=== PATIENT | male | born 1935 | race Caucasian/White ===

== ENCOUNTER 2017-10-17 11:00 | Outpatient (RCR) | payer MEDICARE ==
[~2017-10-17 11:00] MED LIST: ALBU8.5H IH; AMLO-96 PO; ATOR20TA22 PO; ATOR20TA65 PO; ATOR40TA69 PO; AZIT-1 PO; BACDS PO; BECL7.3A7 IH; BECL8.7A2 IH; BECL8.7A6 IH; CALC500T6 PO; CEP500 PO; CHOL100059 PO; CYAN1TAB68 PO; DIPH0.5D12 IM; FLUINH INH; FLUT1DIS28 IH; HYDR12.558 PO; LEV500 PO; LISI-351 PO; LISI-353 PO; LISI-362 PO; LISI20TA29 PO; LOR5 PO; METO25TA23 PO; METO50TA19 PO; MONT10TA PO; OND4 PO; OXYGENHOME INH; PEG4000S14 PO; PNEU0.5D3 IM; SPIR25TA78 PO; VITA-195 PO
[2017-10-17 11:18] VITALS: BP 148/70
== END 2017-11-11 13:41 | disposition home or self-care (01) ==
LOC: SPU 11:00
PROVIDERS: ATTEND Radiology Radiation Oncology
DX: C61 Malignant neoplasm of prostate (principal)
CPT/HCPCS: 36415; 84153

== ENCOUNTER 2017-12-30 13:12 | Outpatient (RCR) | payer MEDICARE ==
[2017-11-17 11:23] VITALS: BP 141/72
[2017-12-19 11:36] VITALS: BP 141/72
[2018-01-05] MEDS ORDERED: LISI-353 PO (12:32)
== END 2018-01-14 15:50 | disposition home or self-care (01) ==
LOC: RAON 13:12
PROVIDERS: ATTEND Radiology Radiation Oncology
DX: C61 Malignant neoplasm of prostate (principal)
CPT/HCPCS: 36415; 84153; G0463; 99212

== ENCOUNTER 2018-02-18 11:00 | Outpatient (RCR) | payer MEDICARE ==
[2017-12-19 11:36] VITALS: BP 141/72
== END 2018-03-09 13:48 | disposition home or self-care (01) ==
LOC: SPU 11:00
PROVIDERS: ATTEND Radiology Radiation Oncology
DX: C61 Malignant neoplasm of prostate (principal)
CPT/HCPCS: 36415; 84153

== ENCOUNTER → 2018-03-23 | Outpatient (CLI) | payer MEDICARE ==
[2018-03-23 14:42] LABS: LDL CHOLESTEROL 69 mg/dl
== END ==
LOC: LAB 14:18
PROVIDERS: ATTEND Internal Medicine
DX: E78.00 Pure hypercholesterolemia, unspecified (principal)
CPT/HCPCS: 36415; 82040; 82247; 82310; 82374; 82435; 82465; 82565; 82947; 83718; 84075; 84132; 84155; 84295; 84450; 84460; 84478; 84520

== ENCOUNTER 2018-03-25 00:40 | Day surgery (SDC) | payer MEDICARE ==
[~2018-03-25] VITALS: Ht 167.6 cm; Wt 67.1 kg
[2018-03-25] MEDS ORDERED: PROPOFOL EMUL(*) 10MG/ML 20 ML 40 ML ONE (07:10)
[2018-03-25] MEDS ORDERED: LIDOCAINE MPF 1% 5 ML VIAL ONE (07:10)
[2018-03-25 09:00] VITALS: BP 172/78
[2018-03-25] MEDS ORDERED: NORMOSOL R SOLN(*) 1000 ML BAG 1,000 ML IV PRN (09:35)
[2018-03-25] MEDS ORDERED: LIDOCAINE/SOD BICARB 8.4% SYR ID ONE (09:35)
[2018-03-25] MEDS ORDERED: ePHEDrine 25 MG/5 ML DISP.SYR IVP ONE (09:53)
[2018-03-25 10:12] VITALS: BP 102/58
[2018-03-25 10:15] VITALS: BP 102/59
--- NOTE | 2018-03-25 10:21 | Short(Outpt) Discharge Summary ---
Discharge Summary Reason for Hosp/Final Diag: (1) Hx of colonic polyp Status: Chronic Hospital Course & Plan: Colonoscopy with polypectomy x3 completed without problems. Departure Discharge to: Home, Self Care Discharge Instructions Home Meds Active Scripts Oxygen (OXYGEN) Inha, 2 L INH QHS, #2 L use oxygen at night Prov:JOAQUIN STUART MD 11/02/15 Cyanocobalamin/Folic Acid (VITAMIN W36-XTNAS ACID TABLET) 1 Each Tablet, 1 EACH PO DAILY, #120 TAB Prov:MARYANA WHITTEN MD 09/01/14 Reported Medications Lisinopril/Hydrochlorothiazide (LISINOPRIL-HCTZ 20-12.5 MG TAB) 1 Each Tablet, 1 EACH PO DAILY 01/05/18 Atorvastatin Calcium (ATORVASTATIN CALCIUM) 40 Mg Tablet, 4 TAB PO QWEEK, TAB 09/05/17 Cholecalciferol (Vitamin D3) (VITAMIN D3) 1,000 Unit Capsule, 2000 UNIT PO QDAY , CAPSULE 08/26/14 Diet: Regular Activity: As Tolerated Special Instructions: Your colonoscopy was completed without any problems and your prep was excellent (Good Job!!). I removed 3 polyps from your colon and they were sent to pathology. My office will call you in the next week to let you know what the polyps are but, if desired, you could have another colonoscopy in 5 years (dependent on your health at that time) since we keep removing polyps or you could decide that this was your last colonoscopy as national screening guidelines suggest that you don't need to keep having colonoscopies after 75-80 years old. VERONICA NEIL MD Mar 25, 2018 10:21
[2018-03-25 10:30] VITALS: BP 127/62
[2018-03-25 10:35] VITALS: BP 124/74
== END 2018-03-25 10:50 | disposition home or self-care (01) ==
LOC: OR 00:40
PROVIDERS: ATTEND Surgery
DX: Z12.11 Encounter for screening for malignant neoplasm of colon (principal); D12.3 Benign neoplasm of transverse colon; D12.4 Benign neoplasm of descending colon; Z86.010 Personal history of colon polyps
CPT/HCPCS: 00811; 45385; 88305; J2001; J2704

== ENCOUNTER → 2018-03-30 | Outpatient (CLI) | payer MEDICARE | LOC: US 00:42 | PROVIDERS: ATTEND Internal Medicine | DX: I51.7 Cardiomegaly (principal); I34.0 Nonrheumatic mitral (valve) insufficiency; I07.1 Rheumatic tricuspid insufficiency; I25.10 Atherosclerotic heart disease of native coronary artery without angina pectoris; I35.1 Nonrheumatic aortic (valve) insufficiency | CPT/HCPCS: 93306 ==

== ENCOUNTER 2018-06-19 11:11 | Outpatient (RCR) | payer MEDICARE ==
[2018-03-27 11:20] VITALS: BP 157/88
[2018-04-17 14:19] VITALS: BP 170/77
[2018-05-15 11:22] VITALS: BP 145/71
[~2018-06-19 11:11] MED LIST changes: -SPIR25TA78 PO; +SPIR25TA80 PO
[2018-06-19 11:34] VITALS: BP 153/71
== END 2018-06-22 ==
LOC: SPU 11:11
PROVIDERS: ATTEND Radiology Radiation Oncology
DX: C61 Malignant neoplasm of prostate (principal)
CPT/HCPCS: 36415; 84153

== ENCOUNTER → 2018-09-07 | Outpatient (CLI) | payer MEDICARE ==
[~2018-09-07] MED LIST changes: +AMLO-111 PO; -AMLO-96 PO; +FLUT1AER INH
--- NOTE | 2018-09-07 15:30 | RADIOLOGY IMAGING REPORT ---
FACILITY: [facility] PATIENT NAME: Gianfranco Chacko : 1935 MR: [id number] V: [id number] EXAM DATE: ORDERING PHYSICIAN: JOAQUIN STUART TECHNOLOGIST: Location: [facility] Patient: Gianfranco Chacko : 1935 Visit/Account:[id number] Date of Sevice: 09/07/2018 AORTA HISTORY: History of aneurysm COMPARISON: 12/26/2016 FINDINGS: Infrarenal abdominal aorta: 2.6 x 3.8 cm greatest AP and transverse dimensions. Aorta wall/mural thrombus: Unremarkable. Proximal common iliac artery diameters: Left 20 mm; Right 24 mm. Aorta and proximal common iliac arteries are patent by duplex Doppler ultrasound. 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
== END ==
LOC: US 02:20
PROVIDERS: ATTEND Internal Medicine
DX: I71.4 Abdominal aortic aneurysm, without rupture (principal)
CPT/HCPCS: 93979

== ENCOUNTER 2018-09-18 11:15 | Outpatient (RCR) | payer MEDICARE ==
--- NOTE | 2018-07-02 14:43 | ONCOLOGY FOLLOW UP NOTE ---
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 HISTORY OF PRESENT ILLNESS The patient is an 82-year-old gentleman who was noted to have an elevated PSA in 2013. The patient underwent a prostate biopsy in October 2014 that showed a Dee 3 + 3 adenocarcinoma involving one of 12 cores. Patient's PSA at that time was 12. He has been on active surveillance since. Repeat biopsy of the prostate in October 2015 showed a 79 cc prostate with a total of two cores positive for disease, Dee power of 3 + 3. The patient's most recent PSA has remained stable at 10.5. The patient's urinary symptoms are stable. His AUA score today is 6. He has nocturia one to two times per night. He denies a sensation of incomplete emptying. PAST MEDICAL HISTORY 1. Prostate cancer, see above. 2. BPH. 3. Abdominal aortic aneurysm. 4. Asthma. 5. Cancer. 6. Cataracts. 7. Heart murmur. 8. Hyperlipidemia. 9. Hypertension. 10. Osteoarthritis. 11. Retinal detachment. 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 SURGICAL HISTORY Cataracts and retinal repair in 2006. ALLERGIES PENICILLINS. MEDICATIONS 1. Supplemental oxygen 2L at bed. 2. B12. 3. Folic acid. 4. Lisinopril. 5. Hydrochlorothiazide. 6. Atorvastatin. 7. Calciferol. SOCIAL HISTORY No significant alcohol or drug use. VITAL SIGNS Performed on July 02, 2018, temperature 98, blood pressure 157/73, pulse 80, respiratory rate 16, O2 saturation 90% on room air. PHYSICAL EXAMINATION CONSTITUTIONAL/GENERAL APPEARANCE: Patient is sitting comfortably in a chair in no acute distress. HEENT: Pupils equal, round, and react to light in combination. Extraocular movements are intact. There are no lesions in the oropharynx. NECK: Supple. Trachea midline. LYMPHATICS: Survey reveals no palpable supraclavicular lymphadenopathy bilaterally. LUNGS: Clear to auscultation and percussion bilaterally. CARDIOVASCULAR: Regular rate and rhythm. Normal S1, S2. No murmurs, rubs, or gallops. ABDOMEN: Soft and nontender with active bowel sounds. No hepatosplenomegaly. EXTREMITIES: No edema, clubbing, or cyanosis. NEUROLOGIC: Patient is alert and oriented times three. Gait is normal. PERFORMANCE STATUS 90% COUNSELING Patient is a nonsmoker. 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 The patient has a stable PSA with no changes in urinary symptomatology. We will plan to see the patient back in six months. The patient will have a monthly PSA between now and then. MTDD
[2018-07-17 12:07] VITALS: BP 145/75
[2018-08-19 11:21] VITALS: BP 148/68
[2018-09-18 13:47] VITALS: BP 131/82
== END 2018-09-29 ==
LOC: SPU 11:15
PROVIDERS: ATTEND Radiology Radiation Oncology
DX: C61 Malignant neoplasm of prostate (principal); R35.1 Nocturia
CPT/HCPCS: 36415; 84153; G0463; 99212

== ENCOUNTER 2018-12-22 09:48 | Outpatient (RCR) | payer MEDICARE ==
[2018-10-16 13:58] VITALS: BP 153/71
[2018-11-18 11:23] VITALS: BP 154/60
[2018-12-16 13:13] VITALS: BP 154/60
[~2018-12-22 09:48] MED LIST changes: -AMLO-111 PO; +AMLO-125 PO
[2018-12-22 10:00] VITALS: BP 148/69
--- NOTE | 2018-12-22 20:28 | ONCOLOGY FOLLOW UP NOTE ---
EVENT DATE: December 22, 2018 CHIEF COMPLAINT/REASON FOR VISIT Prostate cancer surveillance. Patient was originally diagnosed with low-volume Dee 6 tumor with 2 of 12 positive core biopsies in 2015. He elected for active surveillance. He does have a history of LVH and abdominal aortic aneurysm, which are being followed. 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 HISTORY OF PRESENT ILLNESS This is my first visit with the patient. He has seen my partners in the past. He is clinically doing well. No significant change in voiding pattern, basically nocturia times two. He has BPH, but good emptying. He drinks a lot of coffee in the morning. No dysuria. No persistent bone pain. PSA is highly stable at 11.9 ng/mL, which was last drawn on 12/16/18. Patient informs me that he had a recent episode of bronchitis, which he believes was due to the Breo Ellipta inhaler. He is now off that agent and following up closely with Dr. Julien. Respiratory status has stabilized. His hayfever is generally aggravated by seasonal tree blooming with the cottonwoods. His longevity is somewhat difficult to discern. His father at age 72, mother at age 70, both with cancer. Grandparents lived to 76 to 94. No radiographic studies to review at this appointment. He did have an aorta ultrasound last August. He is followed by Dr. Martínez for Cardiology. MEDICATIONS 1. Lisinopril/hydrochlorothiazide 20/12.5 q. day. 2. Atorvastatin 40 mg a day. 3. Albuterol inhaler p.r.n. 4. Oxygen at night 4L. 5. B12/folic acid daily. 6. Vitamin D3. 7. He is also taking [id number] saw palmetto recently. ALLERGIES PENICILLIN. PAST MEDICAL HISTORY 1. Prostate carcinoma listed above. 2. BPH. 3. History of abdominal aortic aneurysm. 4. History of LVH. 5. History of allergic rhinitis/hay fever. 6. Hypertension. SURGICAL HISTORY 1. Prior cataract and retinal repair in 2006. 2. Prior prostate biopsy. 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 He does appear to be active. REVIEW OF SYSTEMS No significant abnormalities other than the recent bronchitis on his review of systems. PHYSICAL EXAMINATION GENERAL: Pleasant 83-year-old male. Excellent performance status. VITAL SIGNS: BP 148/69, pulse 83, respirations 16, O2 sat 90% on room air. LUNGS: Clear to auscultation bilaterally today. HEART: Sounds regular. No significant murmur. He is known to have a faint murmur. ABDOMEN: No gross organomegaly, mass, or tenderness. RECTAL: Enlarged prostate at 80 to 90 g from BPH, but no asymmetry and no surface nodularity. No tenderness. EXTREMITIES: No edema or cyanosis. NEUROLOGIC: Intact. IMPRESSION An 83-year-old gentleman with low-risk Dee 6 adenocarcinoma of the prostate diagnosed approximately five years ago. His PSA is significantly elevated; however, this due to BPH in his case, and the numbers have been stable over the last four years. Patient will continue to monitor the PSAs. He has been doing them monthly, and I suggested he should go to q.3 months. Will see him once a year in the clinic. If the numbers do elevate significantly in the future, he will be referred back to Dr. Russo re-biopsy of the gland and cytogenetics looking for any higher grade transformation. The patient can use the saw palmetto, but there is actually an estrogen compound in the herbal supplement which causes its activity, and in general, it may suppress the PSA single point, but it is relatively safe. PLAN Return to clinic in 12 months with updated PSA at that time. See sooner as needed. He will follow up with Dr. Julien and his cardiology team per schedule. [facility]
[2018-12-29] MEDS ORDERED: FLUINH INH ×2 (09:05→09:06)
[2018-12-29] MEDS ORDERED: AMLO-125 PO (09:50)
== END 2019-01-13 ==
LOC: RAON 09:48
PROVIDERS: ATTEND Radiology Radiation Oncology
DX: C61 Malignant neoplasm of prostate (principal); N40.0 Benign prostatic hyperplasia without lower urinary tract symptoms
CPT/HCPCS: 36415; 84153; G0463; 99212

== ENCOUNTER 2019-03-01 11:00 | Outpatient (RCR) | payer MEDICARE ==
[~2019-03-01 11:00] MED LIST changes: -DIPH0.5D12 IM; +DIPH0.5S2 IM
== END 2019-03-22 16:38 | disposition home or self-care (01) ==
LOC: SPU 11:00
PROVIDERS: ATTEND Radiology Radiation Oncology
DX: C61 Malignant neoplasm of prostate (principal)
CPT/HCPCS: 84153

== ENCOUNTER → 2019-03-29 | Outpatient (CLI) | payer MEDICARE ==
[2019-03-29 15:19] LABS: LDL CHOLESTEROL 62 mg/dl
== END ==
LOC: LAB 14:45
PROVIDERS: ATTEND Internal Medicine
DX: E78.00 Pure hypercholesterolemia, unspecified (principal)
CPT/HCPCS: 36415; 82040; 82247; 82310; 82374; 82435; 82465; 82565; 82947; 83718; 84075; 84132; 84155; 84295; 84450; 84460; 84478; 84520